=== PATIENT | male | born 1985 | race American Indian/Alaskan Native ===

== ENCOUNTER 2018-05-13 12:45 | Emergency (ER) | payer OTHER ==
[2018-05-13 12:52] VITALS: BP 157/102
--- NOTE | 2018-05-13 14:44 | Emergency Department Report ---
ED Upper Extremity Inj HPI - General Chief Complaint: Shoulder Injury Stated Complaint: L SHOULDER INJURY Time Seen by Provider: 05/13/18 13:46 Source: patient Mode of arrival: Ambulatory Limitations: No Limitations - History of Present Illness Initial Comments: 32 yr old male presents to ED with left shoulder pain. Patient states he was picking up a concrete birdbath when he felt something pop in his left shoulder. Denies numbness or tingling. Patient unable to fully lift arm due to the pain. MD Complaint: Injury to:: left, shoulder -: This afternoon Other Injuries: none Improves With: immobilization Worsens With: movement of extremity Context: other (lifting heavy object) Associated Symptoms: denies: weakness, numbness - Related Data Previous Rx's Medication Instructions Recorded Last Taken Type Methocarbamol [Robaxin-750] 750 mg PO Q6HR PRN #20 tablet 05/13/18 Unknown Rx Naproxen [Naprosyn] 500 mg PO BID #20 tablet 05/13/18 Unknown Rx Allergies Allergy/AdvReac Type Severity Reaction Status Date / Time No Known Allergies Allergy Unverified 05/13/18 12:46 ED Review of Systems ROS: Stated complaint: L SHOULDER INJURY Other details as noted in HPI Comment: All other systems reviewed and negative Musculoskeletal: as per HPI Neurological: denies: numbness, paresthesias ED Past Medical Hx - Past Medical History Previous Medical History?: No - Surgical History Past Surgical History?: No - Social History Smoking Status: Current Every Day Smoker Substance Use Type: Alcohol, Marijuana - Medications Home Medications: Home Medications Medication Instructions Recorded Confirmed Last Taken Type Methocarbamol [Robaxin-750] 750 mg PO Q6HR PRN #20 tablet 05/13/18 Unknown Rx Naproxen [Naprosyn] 500 mg PO BID #20 tablet 05/13/18 Unknown Rx ED Physical Exam - General Limitations: No Limitations General appearance: alert, in no apparent distress - Head Head exam: Present: atraumatic, normocephalic - Eye Eye exam: Present: normal appearance - ENT ENT exam: Present: mucous membranes moist - Neck Neck exam: Present: normal inspection - Respiratory Respiratory exam: Present: normal lung sounds bilaterally. Absent: respiratory distress - Cardiovascular Cardiovascular Exam: Present: regular rate, normal rhythm - GI/Abdominal GI/Abdominal exam: Present: soft. Absent: distended, tenderness - Extremities Exam Extremities exam: Present: other (no shoulder deformity noted, pain with abduction of left arm, decreased ROM in left shoulder) - Neurological Exam Neurological exam: Present: alert, oriented X3 - Psychiatric Psychiatric exam: Present: normal affect, normal mood - Skin Skin exam: Present: warm, dry, intact, normal color ED Course Vital Signs 05/13/18 05/13/18 12:50 14:52 Temperature 98.4 F Pulse Rate 85 Respiratory 18 18 Rate Blood Pressure 157/102 O2 Sat by Pulse 100 Oximetry ED Medical Decision Making - Radiology Data Radiology results: report reviewed, image reviewed - Differential Diagnosis fracture, sprain Critical care attestation.: If time is entered above; I have spent that time in minutes in the direct care of this critically ill patient, excluding procedure time. ED Disposition Clinical Impression: Sprain of shoulder, left Disposition: DC-01 TO HOME OR SELFCARE Is pt being admited?: No Condition: Stable Instructions: Shoulder Sprain (ED) Prescriptions: Naproxen [Naprosyn] 500 mg PO BID #20 tablet Methocarbamol [Robaxin-750] 750 mg PO Q6HR PRN #20 tablet PRN Reason: Spasms Referrals: CARMEN LEWIS MD [Staff Physician] - 3-5 Days Time of Disposition: 15:16
[2018-05-13] MEDS ORDERED: ULTRAM PO ONE (14:48)
[2018-05-13] MEDS ORDERED: IBUPROFEN PO ONE (14:48)
--- NOTE | 2018-05-13 15:08 | XRay Report ---
PROCEDURE: XR SHOULDER 2+V LT TECHNIQUE: 3 views of the left shoulder HISTORY: left shoulder poss dislocation/injury COMPARISONS: None. FINDINGS: There is normal alignment without acute fracture or dislocation. The glenohumeral and acromial clavic ular joint spaces are preserved. The overlying soft tissues are intact. IMPRESSION: No acute bony abnormality of the left shoulder. This document is electronically signed by Lita Mcfarlane MD., May 13 2018 03:05:39 PM ET
== END 2018-05-13 15:24 | disposition home or self-care (01) ==
LOC: ED 12:45
DX: S43.402A Unspecified sprain of left shoulder joint, initial encounter (principal); F17.200 Nicotine dependence, unspecified, uncomplicated; F12.10 Cannabis abuse, uncomplicated; X58.XXXA Exposure to other specified factors, initial encounter; Y93.89 Activity, other specified; Y92.89 Other specified places as the place of occurrence of the external cause; Y99.8 Other external cause status

== ENCOUNTER 2018-10-21 14:32 | Emergency (ER) | payer SELFPAY ==
[2018-10-21 14:39] VITALS: BP 137/81
--- NOTE | 2018-10-21 14:41 | Emergency Department Report ---
ED ENT HPI - General Chief complaint: Dental/Oral Stated complaint: RT SIDE TOOTH ACHE Time Seen by Provider: 10/21/18 14:36 Source: patient Mode of arrival: Ambulatory Limitations: No Limitations - History of Present Illness Initial comments: 32 y/o male comes in for dental pain times 2 days. He is aware that he has a bad tooth. MD complaint: tooth pain Onset/Timin -: days(s) Location: tooth # Severity scale (0 -10): 9 Quality: aching Consistency: constant Improves with: none Worsens with: none Associated Symptoms: gum swelling, toothache - Related Data Previous Rx's Medication Instructions Recorded Last Taken Type Methocarbamol [Robaxin-750] 750 mg PO Q6HR PRN #20 tablet 05/13/18 Unknown Rx Naproxen [Naprosyn] 500 mg PO BID #20 tablet 05/13/18 Unknown Rx Clindamycin [Clindamycin CAP] 300 mg PO Q8H #30 cap 10/21/18 Unknown Rx Ibuprofen [Motrin 600 MG tab] 600 mg PO Q8H PRN #30 tablet 10/21/18 Unknown Rx Allergies Allergy/AdvReac Type Severity Reaction Status Date / Time No Known Allergies Allergy Unverified 05/13/18 12:46 ED Dental HPI - General Chief complaint: Dental/Oral Stated complaint: RT SIDE TOOTH ACHE Time Seen by Provider: 10/21/18 14:36 Source: patient Mode of arrival: Ambulatory Limitations: No Limitations - Related Data Previous Rx's Medication Instructions Recorded Last Taken Type Methocarbamol [Robaxin-750] 750 mg PO Q6HR PRN #20 tablet 05/13/18 Unknown Rx Naproxen [Naprosyn] 500 mg PO BID #20 tablet 05/13/18 Unknown Rx Clindamycin [Clindamycin CAP] 300 mg PO Q8H #30 cap 10/21/18 Unknown Rx Ibuprofen [Motrin 600 MG tab] 600 mg PO Q8H PRN #30 tablet 10/21/18 Unknown Rx Allergies Allergy/AdvReac Type Severity Reaction Status Date / Time No Known Allergies Allergy Unverified 05/13/18 12:46 ED Review of Systems ROS: Stated complaint: RT SIDE TOOTH ACHE Other details as noted in HPI Comment: All other systems reviewed and negative ED Past Medical Hx - Past Medical History Previous Medical History?: No - Surgical History Past Surgical History?: No - Social History Smoking Status: Current Every Day Smoker Substance Use Type: Alcohol, Marijuana - Medications Home Medications: Home Medications Medication Instructions Recorded Confirmed Last Taken Type Methocarbamol [Robaxin-750] 750 mg PO Q6HR PRN #20 tablet 05/13/18 Unknown Rx Naproxen [Naprosyn] 500 mg PO BID #20 tablet 05/13/18 Unknown Rx Clindamycin [Clindamycin CAP] 300 mg PO Q8H #30 cap 10/21/18 Unknown Rx Ibuprofen [Motrin 600 MG tab] 600 mg PO Q8H PRN #30 tablet 10/21/18 Unknown Rx ED Physical Exam - General Limitations: No Limitations General appearance: alert, in no apparent distress - Head Head exam: Present: atraumatic, normocephalic - Eye Eye exam: Present: normal appearance ED Medical Decision Making - Medical Decision Making 32 y/o male comes in for dental pain times 2 days. He is aware that he has a bad tooth. Patient will be placed on clindamycin and ibuprofen and a referral to a dentist. Critical care attestation.: If time is entered above; I have spent that time in minutes in the direct care of this critically ill patient, excluding procedure time. ED Disposition Clinical Impression: Pain due to dental caries Disposition: DC- TO HOME OR SELFCARE Is pt being admited?: No Does the pt Need Aspirin: No Condition: Stable Instructions: Dental Caries (ED), Toothache (ED) Prescriptions: Clindamycin [Clindamycin CAP] 300 mg PO Q8H #30 cap Ibuprofen [Motrin 600 MG tab] 600 mg PO Q8H PRN #30 tablet PRN Reason: Pain Referrals: [facility] [Outside] - 3-5 Days [facility] [Outside] - 3-5 Days
== END 2018-10-21 14:53 | disposition home or self-care (01) ==
LOC: ED 14:32
DX: K02.9 Dental caries, unspecified (principal); F17.200 Nicotine dependence, unspecified, uncomplicated; F12.10 Cannabis abuse, uncomplicated
CPT/HCPCS: 99282

== ENCOUNTER 2018-11-07 23:14 | Emergency (ER) | payer OTHER ==
[2018-11-08] MEDS ORDERED: NORCO 5/325 PO ONE (02:01)
[2018-11-08] MEDS ORDERED: IBUPROFEN PO ONE (02:02)
[2018-11-08] MEDS ORDERED: ZOFRAN ODT PO ONE (02:02)
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
[2018-11-08 06:27] VITALS: BP 140/92
== END 2018-11-08 03:03 | disposition home or self-care (01) ==
LOC: ED 23:14
DX: T20.10XA Burn of first degree of head, face, and neck, unspecified site, initial encounter (principal); X58.XXXA Exposure to other specified factors, initial encounter; Y93.89 Activity, other specified; Y92.89 Other specified places as the place of occurrence of the external cause; Y99.8 Other external cause status
CPT/HCPCS: 99282; Q0162

== ENCOUNTER 2020-06-21 12:06 | Emergency (ER) | payer SELFPAY ==
[2020-06-21 12:47] VITALS: BP 138/69
--- NOTE | 2020-06-21 13:57 | Emergency Department Report ---
ED General Adult HPI - General Chief complaint: Dental/Oral Stated complaint: TOOTHACHE Time Seen by Provider: 06/21/20 12:54 Source: patient Mode of arrival: Ambulatory Limitations: No Limitations - History of Present Illness Initial comments: 34-year-old -[place] male patient presents with complaints of sudden onset of left sided facial swelling today. Patient states he has had dental pain in the area for the past 2 days. He denies any difficulty opening his jaw, dysphagia, fever/chills/sweats, chest pain, cough, or shortness of breath. He rates his current pain as a 9/10 in severity and denies trying any OTC medications for his symptoms. Patient states he does have a dental specialist who he plans to make an appointment with today. -: Sudden - Related Data Previous Rx's Medication Instructions Recorded Last Taken Type methocarbamoL [Robaxin-750] 750 mg PO Q6HR PRN #20 tablet 05/13/18 Unknown Rx Ibuprofen [Motrin 600 MG tab] 600 mg PO Q8H PRN #20 tablet 11/08/18 Unknown Rx traMADoL [Ultram] 50 mg PO Q6HR PRN #8 tablet 11/08/18 Unknown Rx Acetaminophen/Codeine [Tylenol 1 tab PO Q8H PRN #8 tab 06/21/20 Unknown Rx /Codeine # 3 tab] Clindamycin [Clindamycin CAP] 300 mg PO Q6H 10 Days #40 cap 06/21/20 Unknown Rx Naproxen [Naprosyn TAB] 500 mg PO BID PRN #20 tablet 06/21/20 Unknown Rx Allergies Allergy/AdvReac Type Severity Reaction Status Date / Time No Known Allergies Allergy Verified 11/07/18 23:20 ED Review of Systems ROS: Stated complaint: TOOTHACHE Other details as noted in HPI Constitutional: denies: chills, fever, malaise ENT: as per HPI. denies: throat pain Respiratory: see HPI Cardiovascular: as per HPI Skin: denies: change in color Hematological/Lymphatic: denies: swollen glands ED Past Medical Hx - Past Medical History Previous Medical History?: No - Surgical History Past Surgical History?: No - Social History Smoking Status: Former Smoker Substance Use Type: None - Medications Home Medications: Home Medications Medication Instructions Recorded Confirmed Last Taken Type methocarbamoL [Robaxin-750] 750 mg PO Q6HR PRN #20 tablet 05/13/18 Unknown Rx Ibuprofen [Motrin 600 MG tab] 600 mg PO Q8H PRN #20 tablet 11/08/18 Unknown Rx traMADoL [Ultram] 50 mg PO Q6HR PRN #8 tablet 11/08/18 Unknown Rx Acetaminophen/Codeine [Tylenol 1 tab PO Q8H PRN #8 tab 06/21/20 Unknown Rx /Codeine # 3 tab] Clindamycin [Clindamycin CAP] 300 mg PO Q6H 10 Days #40 cap 06/21/20 Unknown Rx Naproxen [Naprosyn TAB] 500 mg PO BID PRN #20 tablet 06/21/20 Unknown Rx ED Physical Exam - General Limitations: No Limitations General appearance: alert, in no apparent distress - Head Head exam: Present: atraumatic, normocephalic - Eye Eye exam: Present: normal appearance - Expanded ENT Exam Expanded Mouth exam: Absent: drooling, trismus, muffled voice Teeth exam: Present: dental caries 1 - Dental Tenderness (Severe dental decay noted with tenderness to palpation and overlying facial swelling and tenderness; no cellulitic changes noted) Throat exam: Positive: normal inspection - Neck Neck exam: Present: normal inspection, full ROM. Absent: tenderness, lymphadenopathy - Respiratory Respiratory exam: Absent: respiratory distress - Cardiovascular Cardiovascular Exam: Present: regular rate, normal rhythm, normal heart sounds - Neurological Exam Neurological exam: Present: alert, oriented X3 - Psychiatric Psychiatric exam: Present: normal affect, normal mood - Skin Skin exam: Present: warm, dry, intact, normal color. Absent: rash, diaphoretic, erythema ED Course Vital Signs 06/21/20 12:46 Temperature 98.4 F Pulse Rate 73 Respiratory 18 Rate Blood Pressure 138/69 O2 Sat by Pulse 98 Oximetry ED Medical Decision Making - Medical Decision Making 34-year-old -[place] male patient presents with complaints of sudden onset of left sided facial swelling today. Patient states he has had dental pain in the area for the past 2 days. He denies any difficulty opening his jaw, dysphagia, fever/chills/sweats, chest pain, cough, or shortness of breath. He rates his current pain as a 9/10 in severity and denies trying any OTC medications for his symptoms. Patient states he does have a dental specialist who he plans to make an appointment with today. We will treat for dental abscess with clindamycin. Patient to follow-up with his dental specialist in 2 days for further assessment and treatment. Discussed signs and symptoms that should prompt immediate return to the emergency department in detail with patient who verbalizes understanding, his vitals are stable he is well-appearing he is stable for discharge home Critical care attestation.: If time is entered above; I have spent that time in minutes in the direct care of this critically ill patient, excluding procedure time. ED Disposition Clinical Impression: Dental abscess Disposition: - TO HOME OR SELFCARE Is pt being admited?: No Condition: Stable Instructions: Dental Abscess Additional Instructions: Please follow up with your dental specialist within 2 days Prescriptions: Clindamycin [Clindamycin CAP] 300 mg PO Q6H 10 Days #40 cap Naproxen [Naprosyn TAB] 500 mg PO BID PRN #20 tablet PRN Reason: Pain, Moderate (4-6) Acetaminophen/Codeine [Tylenol /Codeine # 3 tab] 1 tab PO Q8H PRN #8 tab PRN Reason: Pain , Severe (7-10) Referrals: PRIMARY CARE, [Primary Care Provider] - 3-5 Days
== END 2020-06-21 14:12 | disposition home or self-care (01) ==
LOC: ED 12:06
DX: K04.7 Periapical abscess without sinus (principal); Z79.899 Other long term (current) drug therapy; Z87.891 Personal history of nicotine dependence
CPT/HCPCS: 99282